=== PATIENT | male | born 1990 | race Hispanic/Latino ===

== ENCOUNTER 2023-05-20 10:14 | Emergency (ER) | payer OTHER ==
[~2023-05-20] VITALS: Ht 180.3 cm; Wt 83.9 kg
[2023-05-20 12:24] VITALS: BP 137/84; PULSE 72; RESP 18; O2SAT 97
[2023-05-20] MEDS ORDERED: HYDROCODONE/ACETAMINOPHEN 5/325 MG TAB PO ONE (12:30)
[2023-05-20] MEDS ORDERED: PREDNISONE 20 MG TABLET PO ONE (12:30)
[2023-05-20] MEDS ORDERED: IBUPROFEN 600 MG TABLET PO ONE (12:30)
[2023-05-20] MEDS ORDERED: DIAZEPAM 5 MG TABLET PO ONE (12:30)
[2023-05-20] MEDS ORDERED: ONDANSETRON ODT 4MG TAB SL ONE (12:30)
== END 2023-05-20 12:32 | disposition home or self-care (01) ==
LOC: EDH 10:14
DX: S62.394A Other fracture of fourth metacarpal bone, right hand, initial encounter for closed fracture (principal); W18.39XA Other fall on same level, initial encounter; Y93.89 Activity, other specified; Y92.89 Other specified places as the place of occurrence of the external cause; Y99.8 Other external cause status
CPT/HCPCS: 29125; 73130